=== PATIENT | female | born 1990 | race African-American/Black ===

== ENCOUNTER 2018-09-12 14:56 | Emergency (ER) | payer OTHER ==
[~2018-09-12] VITALS: Ht 167.6 cm; Wt 65.8 kg
[2018-09-12 15:12] VITALS: BP 118/59
[2018-09-12] MEDS ORDERED: IBUPROFEN100 MG/52 PO (15:41)
[2018-09-12] MEDS ORDERED: AMOXICILLI250 MG/51 PO (15:41)
== END 2018-09-12 16:16 | disposition home or self-care (01) ==
LOC: ER 14:56
DX: K04.7 Periapical abscess without sinus (principal); F17.210 Nicotine dependence, cigarettes, uncomplicated

== ENCOUNTER 2018-09-26 18:09 | Emergency (ER) | payer OTHER ==
[~2018-09-26] VITALS: Ht 167.6 cm; Wt 65.8 kg
[~2018-09-26 18:09] MED LIST: AMOXICILLI250 MG/51 PO; IBUPROFEN100 MG/52 PO
[2018-09-26 18:57] LABS: URINE BILIRUBIN NEGATIVE (Negative); URINE BLOOD NEGATIVE (Negative); URINE CLARITY CLEAR; URINE COLOR YELLOW; URINE GLUCOSE-RANDOM* NEGATIVE (Negative); URINE KETONES NEGATIVE (Negative); URINE NITRITE-REFLEX NEGATIVE (Negative); URINE PROTEIN (DIPSTICK) TRACE (Negative); URINE SPECIFIC GRAVITY >= 1.030 (1.005-1.035); URINE UROBILINOGEN 0.2 E.U./dl (0.2-1.0)
[2018-09-26 19:01] LABS: URINE LEUKOCYTES-REFLEX 2+ (Negative)
[2018-09-26 19:10] LABS: CASTS None Seen /LPF (None Seen); CRYSTALS None Seen /LPF (None Seen); SQUAMOUS 4-10 Moderate /LPF (0-3); YEAST-REFLEX Present (None Seen)
[2018-09-26 19:11] LABS: URINE RBC None Seen /HPF (0-2); URINE WBC-REFLEX 6-15 Few /HPF (0-5)
[2018-09-26] MEDS ORDERED: DIFLUCAN150 M1 PO (19:13)
[2018-09-26] MEDS ORDERED: FLAGYL500 M1 PO (19:13)
[2018-09-26 19:39] VITALS: BP 123/68
== END 2018-09-26 19:42 | disposition home or self-care (01) ==
LOC: ER 18:09
PROVIDERS: Student in an Organized Health Care Education/Training Program
DX: N76.0 Acute vaginitis (principal); B96.89 Other specified bacterial agents as the cause of diseases classified elsewhere; F17.210 Nicotine dependence, cigarettes, uncomplicated